=== PATIENT | female | born 1990 | race Hispanic/Latino ===

== ENCOUNTER 2024-05-23 02:24 | Emergency (ER) | payer SELFPAY ==
[~2024-05-23] VITALS: Ht 160 cm; Wt 86.6 kg
[2024-05-23 02:35] VITALS: BP 120/80; PULSE 80; RESP 18; TEMP 98.1; O2SAT 95
[2024-05-23] MEDS ORDERED: TORADOL ONE (02:42)
[2024-05-23] MEDS: TORADOL IV STA (02:49)
[2024-05-23 02:52] LABS: +ADD MANUAL DIFF(NO CHRG) NO; BASOPHIL % 0.3 % (0.1-1.2); EOSINOPHIL # 0.4 10^3/uL (0.0-0.2); HEMATOCRIT(ML) 40.3 % (36.0-46.0); HEMOGLOBIN 13.8 g/dL (12.0-15.0); LYMPHOCYTES # 3.48 10^3/uL1 (1.0-4.8); LYMPHOCYTES % 30.3 % (24.0-44.0); MEAN CORP HGB 31.6 pg (26-34); MEAN CORP HGB CONCENTRATION 34.2 g/dL (33-36.5); MEAN CORP VOLUME 92.2 fL (78-100); MONOCYTES # 0.8 10^3/uL (0.3-0.8); MONOCYTES % 6.8 % (5.0-12.0); NEUTROPHIL # 6.8 10^3/uL (1.8-7.7); NEUTROPHILS % 59.3 % (41.0-85.0); PLATELET COUNT 257 10^3/uL (150-400); RED BLOOD CELL 4.37 10^6/uL (4.00-5.20); RED CELL DISTRIBUTION WIDTH 11.8 % (11.5-14.5); WHITE BLOOD CELL 11.5 10^3/uL (4.5-11.0)
[2024-05-23 03:26] LABS: ALANINE AMINOTRANSFERASE(ML) 24 U/L (12-78); ALBUMIN(ML) 3.5 g/dL (3.4-5.0); ALBUMIN/GLOBULIN RATIO 1.166; ALKALINE PHOSPHATASE 79 U/L (50-136); ANION GAP 13.7; ASPARTATE AMINO TRANSFERASE 22 U/L (0-35); CALCIUM 8.3 mg/dL (8.4-10.5); CARBON DIOXIDE 25.6 mmol/L (20.0-32); CREATININE SERUM 0.67 mg/dL (0.59-1.40); EST GFR, NON-AA 101.4 (>/=60); GLUCOSE 104 mg/dL (74-106); POTASSIUM 3.3 mmol/L (3.6-5.2); SODIUM 138 mmol/L (132-145)
[2024-05-23 03:30] LABS: TROPONIN I HIGH SENSITIVITY < 4 ng/L (0-50)
[2024-05-23 03:40] VITALS: BP 108/71; PULSE 64; RESP 18; TEMP 98.1; O2SAT 96
== END 2024-05-23 03:42 | disposition home or self-care (01) ==
LOC: ER 02:24
DX: M25.512 Pain in left shoulder (principal); F14.90 Cocaine use, unspecified, uncomplicated
CPT/HCPCS: 99285; 96374; 73030; 80053; 85025; 36415; 84484; 93005; J1885; 80307; 85379